=== PATIENT | female | born 1975 | race Hispanic/Latino ===

== ENCOUNTER 2021-04-03 14:20 | Emergency (ER) | payer OTHER, SELFPAY ==
--- OUTSIDE RECORDS SUMMARY | 2021-04-03 14:26 | XMS REPORT | Continuity of Care Document ---
:1975 Author Organization [facility] t Address [address] [place] [address] Dr. Farmer. [address] [place] [address] Care Team Providers Name Role Phone ROYER RAHMAN Primary Care Physician Unavailable ADRIAN YOUNG Attending Clinician Unavailable Nurse, Pob Immunization Attending Clinician Unavailable Adiran Young DO Attending Clinician GREEN Attending Clinician Unavailable Only, Db Test Attending Clinician Unavailable Marguerite YARN CONDITIONER Attending Clinician Only, Pob2 Test Attending Clinician Unavailable COREY, Laith Attending Clinician Unavailable Corey NEWSOME, A Attending Clinician NURIA SILVA Attending Clinician Unavailable Laith CAM Attending Clinician Unavailable Tutu NEWSOME, A Attending Clinician Pob, Lab Main Attending Clinician Unavailable Jose Angel NEWSOME Attending Clinician JOSE ANGEL Attending Clinician Unavailable Victoriano AMARO Attending Clinician Unavailable 1, Lab Attending Clinician Unavailable Doctor Unassigned, Name Attending Clinician Unavailable Payers Payer Name Policy Type Policy Number Effective Date Expiration Date S rosana [facility] - [id number] 2021 00:00:00 OUT OF STATE CIGNA II [id number] 2020 00:00:00 Problems This patient has no known problems. Allergies, Adverse Reactions, Alerts Allergy Allergy Status Severity Reaction(s) Onset Inactive Treating Comm ents Source Name Type Date Date Clinician NO KNOWN Drug Active Univers ALLERGIE Class ity of [facility] Social History Social Habit Start Date Stop Date Quantity Comments Source Exposure to Yes University SARS-CoV-2 [place] [facility] (event) [facility] Alcohol intake 2012-06-13 2012-06-13 Current University of 00:00:00 00:00:00 non-drinker of [facility] alcohol Branch (finding) Sex Ass[birth year] Universit y of 00:00:00 00:00:00 [facility] Smoking Status Start Date Stop Date Source Never smoker [facility] Branch Medications Ordered Filled Start Stop Current Ordering Indication Dosage Frequency Signature Comments Components Source Medication Medication Date Date Medication? Clinician (SIG) Name Name metoclopram 2013-0 Yes 10mg Take 1 Tab Univers jennifer HCl 4-08 by mouth ity of (REGLAN) 10 00:00: every 6 Otf as mg tablet 00 (six) Medical hours as Branch needed (headache) . metoclopram 2013-0 Yes 10mg Take 1 Tab Univers jennifer HCl 4-08 by mouth ity of (REGLAN) 10 00:00: every 6 Otf as mg tablet 00 (six) Medical hours as Branch needed (headache) . metoclopram 2012-0 Yes 10mg Take 1 Tab Univers jennifer HCl 4-08 by mouth ity of (REGLAN) 10 00:00: every 6 Otf as mg tablet 00 (six) Medical hours as Branch needed (headache) . metoclopram 2013-0 Yes 10mg Take 1 Tab Univers jennifer HCl 4-08 by mouth ity of (REGLAN) 10 00:00: every 6 Otf as mg tablet 00 (six) Medical hours as Branch needed (headache) . metoclopram 2013-0 Yes 10mg Take 1 Tab Univers jennifer HCl 4-08 by mouth ity of (REGLAN) 10 00:00: every 6 Otf as mg tablet 00 (six) Medical hours as Branch needed (headache) . metoclopram 2013-0 Yes 10mg Take 1 Tab Univers jennifer HCl 4-08 by mouth ity of (REGLAN) 10 00:00: every 6 Otf as mg tablet 00 (six) Medical hours as Branch needed (headache) . metoclopram 2013-0 Yes 10mg Take 1 Tab Univers jennifer HCl 4-08 by mouth ity of (REGLAN) 10 00:00: every 6 Otf as mg tablet 00 (six) Medical hours as Branch needed (headache) . metoclopram 2013-0 Yes 10mg Take 1 Tab Univers jennifer HCl 4-08 by mouth ity of (REGLAN) 10 00:00: every 6 Otf as mg tablet 00 (six) Medical hours as Branch needed (headache) . metoclopram 2013-0 Yes 10mg Take 1 Tab Univers jennifer HCl 4-08 by mouth ity of (REGLAN) 10 00:00: every 6 Otf as mg tablet 00 (six) Medical hours as Branch needed (headache) . metoclopram 2013-0 Yes 10mg Take 1 Tab Univers jennifer HCl 4-08 by mouth ity of (REGLAN) 10 00:00: every 6 Otf as mg tablet 00 (six) Medical hours as Branch needed (headache) . metoclopram 2013-0 Yes 10mg Take 1 Tab Univers jennifer HCl 4-08 by mouth ity of (REGLAN) 10 00:00: every 6 Otf as mg tablet 00 (six) Medical hours as Branch needed (headache) . metoclopram 2013-0 Yes 10mg Take 1 Tab Univers jennifer HCl 4-08 by mouth ity of (REGLAN) 10 00:00: every 6 Otf as mg tablet 00 (six) Medical hours as Branch needed (headache) . metoclopram 2013-0 Yes 10mg Take 1 Tab Univers jennifer HCl 4-08 by mouth ity of (REGLAN) 10 00:00: every 6 Otf as mg tablet 00 (six) Medical hours as Branch needed (headache) . metoclopram 2013-0 Yes 10mg Take 1 Tab Univers jennifer HCl 4-08 by mouth ity of (REGLAN) 10 00:00: every 6 Otf as mg tablet 00 (six) Medical hours as Branch needed (headache) . metoclopram 2013-0 Yes 10mg Take 1 Tab Univers jennifer HCl 4-08 by mouth ity of (REGLAN) 10 00:00: every 6 Otf as mg tablet 00 (six) Medical hours as Branch needed (headache) . metoclopram 2013-0 Yes 10mg Take 1 Tab Univers jennifer HCl 4-08 by mouth ity of (REGLAN) 10 00:00: every 6 Otf as mg tablet 00 (six) Medical hours as Branch needed (headache) . Immunizations Ordered Filled Immunization Date Status Comments [facility] e Immunization Name Name SARS-COV-2 COVID-19 2021-03-25 Completed Unive rsity of PFIZER VACCINE 00:00:00 [facility] Branch SARS-COV-2 COVID-19 2020-06-04 Completed Unive rsity of PFIZER VACCINE 00:00:00 [facility] SARS-COV-2 COVID-19 2020-06-04 Completed Unive rsity of PFIZER VACCINE 00:00:00 [facility] Branch SARS-COV-2 COVID-19 2020-06-04 Completed Unive rsity of PFIZER VACCINE 00:00:00 [facility] SARS-COV-2 COVID-19 2020-06-04 Completed Unive rsity of PFIZER VACCINE 00:00:00 [facility] Branch SARS-COV-2 COVID-19 2020-06-04 Completed Unive rsity of PFIZER VACCINE 00:00:00 [facility] SARS-COV-2 COVID-19 2020-06-04 Completed Unive rsity of PFIZER VACCINE 00:00:00 [facility] Branch SARS-COV-2 COVID-19 2020-06-04 Completed Unive rsity of PFIZER VACCINE 00:00:00 [facility] SARS-COV-2 COVID-19 2020-06-04 Completed Unive rsity of PFIZER VACCINE 00:00:00 [facility] SARS-COV-2 COVID-19 2020-06-04 Completed Unive rsity of PFIZER VACCINE 00:00:00 [facility] SARS-COV-2 COVID-19 2020-06-04 Completed Unive rsity of PFIZER VACCINE 00:00:00 [facility] SARS-COV-2 COVID-19 2020-06-04 Completed Unive rsity of PFIZER VACCINE 00:00:00 [facility] SARS-COV-2 COVID-19 2020-05-04 Completed Unive rsity of PFIZER VACCINE 00:00:00 [facility] Branch SARS-COV-2 COVID-19 2020-05-04 Completed Unive rsity of PFIZER VACCINE 00:00:00 [facility] Branch SARS-COV-2 COVID-19 2020-05-04 Completed Unive rsity of PFIZER VACCINE 00:00:00 [facility] SARS-COV-2 COVID-19 2020-05-04 Completed Unive rsity of PFIZER VACCINE 00:00:00 [facility] SARS-COV-2 COVID-19 2020-05-04 Completed Unive rsity of PFIZER VACCINE 00:00:00 [facility] SARS-COV-2 COVID-19 2020-05-04 Completed Unive rsity of PFIZER VACCINE 00:00:00 [facility] Branch SARS-COV-2 COVID-19 2020-05-04 Completed Unive rsity of PFIZER VACCINE 00:00:00 [facility] SARS-COV-2 COVID-19 2020-05-04 Completed Unive rsity of PFIZER VACCINE 00:00:00 [facility] Branch SARS-COV-2 COVID-19 2020-05-04 Completed Unive rsity of PFIZER VACCINE 00:00:00 [facility] Branch SARS-COV-2 COVID-19 2020-05-04 Completed Unive rsity of PFIZER VACCINE 00:00:00 [facility] Branch SARS-COV-2 COVID-19 2020-05-04 Completed Unive rsity of PFIZER VACCINE 00:00:00 [facility] Branch SARS-COV-2 COVID-19 2020-05-04 Completed Unive rsity of PFIZER VACCINE 00:00:00 [facility] Branch SARS-COV-2 COVID-19 2020-05-04 Completed Unive rsity of PFIZER VACCINE 00:00:00 [facility] Branch SARS-COV-2 COVID-19 2020-05-04 Completed Unive rsity of PFIZER VACCINE 00:00:00 [facility] Branch SARS-COV-2 COVID-19 2020-05-04 Completed Unive rsity of PFIZER VACCINE 00:00:00 [facility] SARS-COV-2 COVID-19 2020-05-04 Completed Unive rsity of PFIZER VACCINE 00:00:00 [facility] Procedures Procedure Date / Time Performed Performing Clinician Sour e SARS-COV-2 COVID-19 2021-03-25 15:02:35 Doctor Unassigned, No [facility] [place] VACCINE,0.3ML, Name [facility] Branch (PFIZER) ASSIGNMENT OF BENEFITS 2020-06-04 13:46:20 Doctor Unassigned, No University [facility] TOTAL PROTEIN, URINE 2020-05-06 18:18:00 Ronnie Cam Uni versity of [facility] PROTEIN CREAT RATIO 2020-05-06 18:18:00 Ronnie Cam [facility] [place] URINE [facility] CBC WITH DIFF 2020-05-06 17:16:00 [facility] COMP. METABOLIC PANEL 2020-05-06 17:16:00 Ronnie Cam [facility] ([id number]) [facility] Encounters Start End Encounter Admission Attending Care Care Encounter Source Date/Time Date/Time Type Type Clinicians Facility Department ID 2021-03-25 2021-03-25 Outpatient R ANGY [facility] [id number] Univers 08:40:00 08:40:00 SANCHEZ sharee [facility] 2021-03-25 2021-03-25 Imm/Inj Nurse, Adc Pob Immunization [facility] 1.2.840.114 [id number] Univers 08:40:00 08:40:00 Visit Sanchez Young 350.1.13 .10 ity [facility] [id number] [id number] [facility] [address] BU[facility] 2021-03-21 2021-03-21 Outpatient R [facility] [id number] Univers 16:40:00 17:08:00 [facility] 2021-03-21 2021-03-21 Laboratory Only, Ang Db Test [facility] 1.2.8 40.114 [id number] Univers 16:40:00 17:00:00 [facility] 350.1.13.10 ity [facility] 4.2.7.2.686 Otf as MARK?BLEA [id number] Mi dical EY [address] MEDICAL OFFICE BUILDING 2021-03-21 2021-03-21 Outpatient R [facility] [id number] Univers 16:40:00 [facility]40[id number]-19 2021-03-19 Outpatient R ANGY [facility] [id number] Univers 10:15:00 10:15:35 SANCHEZ sharee [facility] 2021-03-19 2021-03-19 Laboratory Only, Adc Pob2 Test [facility] 1.2 .840.114 [id number] Univers 10:15:00 10:15:35 Only Sanchez Young 350.1.13 .10 ity [facility] [place] [id number] Mi dical NAL [address] [place] [address] 2021-03-19 2021-03-19 Outpatient R [facility] [id number] Univers 10:15:00 10:15:00 [id number] ity of [facility] 2020-11-08 2020-11-08 Outpatient R [facility] [id number] Univers 16:00:00 16:00:00 [id number] ity [facility] 2020-11-08 2020-11-08 [facility] [id number] Univers 16:00:00 16:00:[facility] 2020-11-08 2020-11-08 Laboratory Only, Adc Pob2 Test [facility] 1.2 .840.114 [id number] Univers 15:14:43 15:31:08 Only Jayro [place] 350.1.13.10 ity [facility] 4[place] [phone] [address] 2020-07-15 2020-07-15 Outpatient [facility] [id number] Univers 10:30:00 10:30:00 RUPAK ity [facility] 2020-07-15 2020-07-15 Outpatient [facility] [id number] Univers 00:00:00 00:00:00 RONNIE [id number] ity o f [facility] 2020-07-15 2020-07-15 Telephone [facility] 1.2.840.114 [id number] Univers 00:00:00 00:00:00 Ronnie Ozuna MULTISPEC 350.1.13.10 ity of [place]2.[place] [id number] [facility] INO [address] DIABETES CLINIC 2020-07-01 2020-07-01 Telephone [facility] 1.2.840.114 [id number] Univers 00:00:00 00:00:00 Ronnie Ozuna MULTISPEC 350.1.13.10 ity [place]2.[place] [id number] [facility] [address] DI[facility]ET[facility]IC 2020-06-14 2020-06-14 Data Programmer Graham Mccloud Lab Main [facility] 1.2.8 40.114 [id number] Univers 09:25:09 09:40:09 Visit Marisol Lamas 350.1.13.10 ity of [place]2.[place].2.686 [place] [facility] [phone] Mi dical nal [address] [place] [address] 2020-06-14 2020-06-14 Outpatient R [facility] [id number] Univers 08:45:00 08:45:00 [id number] ity of [facility] 2020-06-14 2020-06-14 Outpatient R [facility] [id number] Univers 08:45:00 08:45:00 MARISOL ity [facility] 2020-06-13 2020-06-13 [facility] 1.2.840.114 [id number] Univers 00:00:00 00:00:00 Management Ronnie MCNEIL 350.1.13.10 ity [place] [id number] [address] DIABETES CLINIC 2020-06-06 2020-06-06 Outpatient R [facility] [id number] Univers 09:45:00 09:45:00 [id number] ity of [facility] 2020-06-06 2020-06-06 Outpatient R [facility] [id number] Univers 09:45:00 09:45:00 RONNIE ity o f [facility] 2020-06-06 2020-06-06 Data Programmer Graham Mccloud Lab Main [facility] 1.2.8 40.114 [id number] Univers 09:14:27 09:29:27 Visit Ronnie Cam 350.1.13. 10 ity of [place].2.[place] [id number] Mi dical nal [address] [facility] 2020-06-04 2020-06-04 Outpatient R SONDRA, [facility] [id number] Univers 10:00:00 10:00:00 MAX ity of [facility] 2020-06-04 2020-06-04 Data Programmer 1, Adc Lab [facility] 1.2.840.114 [id number] Univers 08:44:42 08:59:42 Visit Ronnie Cam [place] 350.1.13. 10 ity of [place] 4.2.7.2.686 [facility] [id number] [facility] [address] 2020-06-04 2020-06-04 Outpatient R [facility] [id number] Univers 08:30:00 08:30:00 [id number] ity of [facility] 2020-06-04 2020-06-04 Outpatient R [facility] [id number] Univers 08:30:00 08:30:00 RONNIE diez o f [facility] 2020-06-04 2020-06-04 Orders Doctor RODERICK 1.2.840.114 [id number] Univers 00:00:00 00:00:00 Only Unassigned, MARSHA 350.1.13.10 ity of [place] [facility] 4.[address] [place] [address] [id number] [facility] [address] Branch 2020-05-27 2020-05-27 Telephone Tutu [facility] 1.2.840.114 [id number] Univers 00:00:00 00:00:00 Ronnie Ozuna MULTISPEC 350.1.13.10 ity of [place] 4.2.7.2.686 [facility] [id number] [facility] [place] [address] DIABETES CLINIC 2020-05-25 2020-05-25 Outpatient [facility] [id number] Univers 17:25:00 17:25:00 ity of [facility] 2020-05-06 2020-05-06 Outpatient R [facility] [id number] Univers 10:30:00 10:30:00 RONNIE diez o f [facility] 2020-05-06 2020-05-06 Data Programmer Pob, Adc Lab Main [facility] 1.2.8 40.114 [id number] Univers 09:52:05 10:07:05 Visit Ronnie Cam [place] 350.1.13. 10 [facility] 4.2.7.2.686 [place] [id number] Mi dical [address] 2020-05-04 2020-05-04 Outpatient R SONDRA, [facility] [id number] Univers 15:50:00 15:50:00 [facility] 2020-04-02 2020-04-02 [facility] [id number] Univers 00:00:00 23:59:00 RONNIE diez o f [facility] Results Test Description Test Time Test Comments Results Result Comments Source PROTEIN CREAT RATIO URINE RANDOM 2020-05-06 19:11:00 Test Item Value Reference Range Interpretation Comme nts T. PROT U (test code = 2888-6) 14 mg/dL CREAT U (test code = 1583520886) 40.4 mg/dL Protein/Creatinine Ratio Urine (test 0.0-2.0 code = 2575984844) LIZZ (test code = LIZZ) Random Urine Total Protein Reference Ranges Random Specimen: ? Less than 10 mg/dLFirst Morning Specimen: ? ?Less than 20 mg/dL ? [facility] [id number] 19:10:00 Test Item Value Reference Range Interpretation Comments T. PROT U (test code = 2888-6) 14 mg/dL [facility] ([id number])2020-05-06 18:39:00 Test Item Value Reference Range Interpretation Comments NA (test code = 137 mmol/L 135-145 9543379263) K (test code = 4.0 mmol/L 3.5-5 1881742061) CL (test code = 104 mmol/L 98-108 7709034575) CO2 TOTAL (test code = 24 mmol/L 23-31 9082207742) AGAP (test code = 2-16 0797099557) BUN (test code = 7 mg/dL 7-23 1359554331) GLUCOSE (test code = 82 mg/dL 70-110 3694645515) CREATININE (test code = 0.47 mg/dL 0.5-1.04 L 0992548522) TOTAL BILI (test code = 0.5 mg/dL 0.1-1.4 7700004936) CALCIUM (test code = 9.9 mg/dL 8.6-10.6 8279973305) T PROTEIN (test code = 7.1 g/dL 6.3-8.2 6425564162) ALBUMIN (test code = 4.5 g/dL 3.5-5 6372970983) ALK PHOS (test code = 65 U/L 34-122 9292518177) ALTv (test code = 14 U/L 5-35 1742-6) AST(SGOT) (test code = 21 U/L 13-40 2577683832) eGFR Calculation mL/min/1.73m2 (Non-) (test code = 2102047286) eGFR Calculation mL/min/1.73m2 () (test code = 4247983057) LIZZ (test code = LIZZ) Association of Glomerular Filtration Rate (GFR) and Staging of Kidney Disease* + --+ --+ ------+| GFR (mL/min/1.73 m2) ?| With Kidney Damage ?| ?Without Kidney Damage+ --------+ --------+ +| ?>90 ?| ?Stage one ?| ? Normal ?+ ---+ ---+ -------+| ?60-89 ?| ?Stage two ?| ? Decreased GFR ? + --+ --+ ------+| ?30-59 ?| ?Stage three ?| ? Stage three ? + --+ --+ ------+| ?15-29 ?| ?Stage four ? | ? Stage four ?+ ---+ ---+ -------+| ?<15 (or dialysis) ? ?| ?Stage five ? | ? Stage five ?+ ---+ ---+ -------+ *Each stage assumes the associated GFR level has been in effect for at least three months. ?Stages 1 to 5, with or without kidney disease, indicate chronic kidney disease. Notes: Determination of stages one and two (with eGFR >59mL/min/1.73 m2) requires estimation of kidney damage for at least three months as defined by structural or functional abnormalities of the kidney, manifested by either:Pathological abnormalities or Markers of kidney damage (including abnormalities in the composition of the blood or urine or abnormalities in imaging tests). Lab Interpretation Abnormal (test code = 61335-8) [facility] WITH [id number] 17:19:00 Test Item Value Reference Range Interpretation Comments WBC (test code = See_Comment L [Automated 4290-2) message] The sy stem which generated this result transmitted reference range : 4.30 - 11.10 10*3/?L. The reference range was not used to interpret this result as normal/abnormal . RBC (test code = See_Comment [Automated 789-8) message] The sy stem which generated this result transmitted reference range : 3.93 - 5.25 10*6/?L. The reference range was not used to interpret this result as normal/abnormal . HGB (test code = 12.9 g/dL 11.6-15 718-7) HCT (test code = 38.4 % 35.7-45.2 4544-3) MCV (test code = 89.9 fL 80.6-95.5 787-2) MCH (test code = 30.2 pg 25.9-32.8 785-6) MCHC (test code = 33.6 g/dL 31.6-35.1 786-4) RDW-SD (test code = 43.8 fL 39-49.9 52289-7) RDW-CV (test code = 13.3 % 12-15.5 788-0) PLT (test code = See_Comment [Automated 777-3) message] The sy stem which generated this result transmitted reference range : 166 - 358 10*3/ ?L. The reference r mohinder was not used to interpret this result as normal/abnormal . MPV (test code = 9.3 fL 9.5-12.9 L 97671-8) NRBC/100 WBC (test See_Comment [Automat ed code = 1039571051) message] The system which generated this result transmitted reference range : 0.0 - 10.0 /100 WBCs. The refer ence range was not u sed to interpret th is result as normal/abnormal . NRBC x10^3 (test code <0.01 See_Comment [Auto mated = 3559048291) message] The s ystem which generated this result transmitted reference range : 10*3/?L. The reference range was not used to interpret this result as normal/abnormal . GRAN MAT (NEUT) % 61.7 % (test code = 770-8) IMM GRAN % (test code 0.50 % = 4513392303) LYMPH % (test code = 26.0 % 736-9) MONO % (test code = 10.1 % 5905-5) EOS % (test code = 1.0 % 713-8) BASO % (test code = 0.7 % 706-2) GRAN MAT x10^3(ANC) 2.49 10*3/uL 1.88-7.09 (test code = 6954321137) IMM GRAN x10^3 (test <0.03 0-0.06 code = 2735733499) LYMPH x10^3 (test code 1.05 10*3/uL 1.32-3.29 L = 731-0) MONO x10^3 (test code 0.41 10*3/uL 0.33-0.92 = 742-7) EOS x10^3 (test code = 0.04 10*3/uL 0.03-0.39 711-2) BASO x10^3 (test code 0.03 10*3/uL 0.01-0.07 = 704-7) Lab Interpretation Abnormal (test code = 82777-8) [facility] WITH [id number] 17:19:00 Test Item Value Reference Range Interpretation Comments WBC (test code = See_Comment L [Automated 7490-2) message] The sy stem which generated this result transmitted reference range : 4.30 - 11.10 10*3/?L. The reference range was not used to interpret this result as normal/abnormal . RBC (test code = See_Comment [Automated 029-8) message] The sy stem which generated this result transmitted reference range : 3.93 - 5.25 10*6/?L. The reference range was not used to interpret this result as normal/abnormal . HGB (test code = 12.9 g/dL 11.6-15 718-7) HCT (test code = 38.4 % 35.7-45.2 4544-3) MCV (test code = 89.9 fL 80.6-95.5 787-2) MCH (test code = 30.2 pg 25.9-32.8 785-6) MCHC (test code = 33.6 g/dL 31.6-35.1 786-4) RDW-SD (test code = 43.8 fL 39-49.9 10462-5) RDW-CV (test code = 13.3 % 12-15.5 788-0) PLT (test code = See_Comment [Automated 777-3) message] The sy stem which generated this result transmitted reference range : 166 - 358 10*3/ ?L. The reference r mohinder was not used to interpret this result as normal/abnormal . MPV (test code = 9.3 fL 9.5-12.9 L 98516-1) NRBC/100 WBC (test See_Comment [Automat ed code = 6762440014) message] The system which generated this result transmitted reference range : 0.0 - 10.0 /100 WBCs. The refer ence range was not u sed to interpret th is result as normal/abnormal . NRBC x10^3 (test code <0.01 See_Comment [Auto mated = 3075135188) message] The s ystem which generated this result transmitted reference range : 10*3/?L. The reference range was not used to interpret this result as normal/abnormal . GRAN MAT (NEUT) % 61.7 % (test code = 770-8) IMM GRAN % (test code 0.50 % = 5928579436) LYMPH % (test code = 26.0 % 736-9) MONO % (test code = 10.1 % 5905-5) EOS % (test code = 1.0 % 713-8) BASO % (test code = 0.7 % 706-2) GRAN MAT x10^3(ANC) 2.49 10*3/uL 1.88-7.09 (test code = 1658984999) IMM GRAN x10^3 (test <0.03 0-0.06 code = 6749972562) LYMPH x10^3 (test code 1.05 10*3/uL 1.32-3.29 L = 731-0) MONO x10^3 (test code 0.41 10*3/uL 0.33-0.92 = 742-7) EOS x10^3 (test code = 0.04 10*3/uL 0.03-0.39 711-2) BASO x10^3 (test code 0.03 10*3/uL 0.01-0.07 = 704-7) Lab Interpretation Abnormal (test code = 45398-1) [facility]"
[2021-04-03 14:44] LABS: Absolute Lymphocytes (CBC) 2.2 K/uL (0.7-4.9); Hematocrit 36.9 % (36.0-45.0); Lymphocytes % 22.2 % (15.3-44.8); MPV 7.3 fL (7.6-11.3); RBC Red Blood Cell Count 4.22 M/uL (3.86-4.86)
[2021-04-03] MEDS ORDERED: NA CHLORIDE 0.9% 1,000 ML ONE (14:53)
[2021-04-03 14:57] LABS: Potassium 3.1 mmol/L (3.5-5.1)
[2021-04-03] MEDS ORDERED: FENTANYL CITR 100 MCG/2 ML ONE (15:35)
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
[2021-04-03 16:19] LABS: Urine Blood 3+ (Negative); Urine Glucose Negative (Negative); Urine Protein 1+ (Negative); Urine Specific Gravity 1.015 (1.005-1.030); Urine pH 6.5 (5.0-7.0)
[2021-04-03 16:32] LABS: Urine Specific Gravity/Preg 1.015 (1.005-1.030)
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
[2021-04-03 17:55] VITALS: TEMP 97.6
[2021-04-03 18:01] VITALS: BP 124/80; O2SAT 95
== END 2021-04-03 17:29 | disposition short-term general hospital (02) ==
LOC: ER 14:20
DX: S06.6X0A Traumatic subarachnoid hemorrhage without loss of consciousness, initial encounter (principal); V29.40XA Motorcycle driver injured in collision with unspecified motor vehicles in traffic accident, initial encounter; Z20.822 Contact with and (suspected) exposure to COVID-19
CPT/HCPCS: 96361; 85025; 80048; 36415; 81025; 82565; 81003; 70450; 72125; 71260; 74177; 96374; 99285; U0003; Q9967; J3010; J7030